=== PATIENT | female | born 1950 | race Caucasian/White ===

== ENCOUNTER → 2017-05-23 | Outpatient (CLI) | payer MEDICARE, BC ==
--- NOTE | ~2017-05-23 | US37 ---
[facility] A Service of [facility] RADIOLOGY TEXT RESULTS PATIENT: MINLA CAREY LOCATION: SNIV : 52 UNIT #: [id number] AGE: [address]: Ravi Auguste MD SEX: F ORDER DR: [id number] [place] [id number] O MR#: [id number] Acc #: [id number] NAME: MINAL CAREY : 1950 SEX: F STUDY DATE/TIME: 05/23/2017 10:08 UNIT: SNIV ROOM: STUDY DESCRIPTION: US Carotid W/Doppler Bilateral Attending Physician: Ravi Auguste M.D. Referring Physician: Ravi Auguste M.D. Ordering Physician: Ravi Auguste M.D. Primary Care Physician: Ravi Auguste M.D. MEDICAL IMAGING REPORT This report is preliminary unless electronic signature is present. EXAM Carotid Doppler HISTORY Carotid bruit. Hyperlipidemia, hypertension and mitral valve prolapse. TECHNIQUE Bilateral carotid ultrasound examination was performed using parsons-scale spectral Doppler, color-flow Doppler imaging. Carotid flow was assessed using standards based on NASCET criteria. FINDINGS Ultrasound examination of the carotid arteries really shows minimal plaque. Doppler evaluation shows normal flow velocities and normal Doppler waveforms within the carotid and vertebral arteries bilaterally. Peak systolic internal carotid artery flow velocities measure up to 108 cm/sec on the right and 118 cm/sec on the left. There is no evidence of significant carotid stenosis of the neck. IMPRESSION Mild carotid disease. No Doppler ultrasound evidence of flow-limiting or clinically significant stenosis. Dictated by... Lyudmila Stoll M.D. THIS IS AN ELECTRONICALLY VERIFIED REPORT Lyudmila Stoll M.D. at 05/24/2017 2:50 PM AFF/pcl [facility] A Service [facility] RADIOLOGY TEXT RESULTS PATIENT: MINAL CAREY LOCATION: SNIV : 52 UNIT #: [id number] AGE: [address]: Ravi Auguste MD SEX: F ORDER DR: TD: 05/23/2017 23:37 JOB #: [id number] MEDICAL IMAGING REPORT Page 1 of 1
== END | disposition home or self-care (01) ==
LOC: SNIV 05-07 09:00
DX: R09.89 Other specified symptoms and signs involving the circulatory and respiratory systems (principal); E78.5 Hyperlipidemia, unspecified; I10 Essential (primary) hypertension; I77.9 Disorder of arteries and arterioles, unspecified
CPT/HCPCS: 93880